=== PATIENT | male | born 1940 | race Caucasian/White ===

== ENCOUNTER 2017-09-13 10:19 | Day surgery (SDC) | payer MEDICARE ==
[~2017-09-13] VITALS: Ht 185.4 cm; Wt 113.6 kg
[2017-09-13] MEDS ORDERED: SODIUM CHLORIDE 0.9% 1,000 ML IV SCH (10:50)
[2017-09-13 10:55] VITALS: BP 137/81
[2017-09-13] MEDS ORDERED: CEFAZOLIN PMX 1GM/50ML 50 ML IVPB ONE (11:00)
[2017-09-13] MEDS ORDERED: OMEP-110 PO (11:15)
[2017-09-13] MEDS ORDERED: SIMV40TA3 PO (11:15)
[2017-09-13] MEDS ORDERED: ASPI-621 PO (11:15)
[2017-09-13] MEDS ORDERED: LEVO175T36 PO (11:15)
[2017-09-13] MEDS ORDERED: DIGO125T PO (11:15)
[2017-09-13] MEDS ORDERED: ALLO100T30 PO (11:15)
[2017-09-13] MEDS ORDERED: WARF5TAB PO (11:15)
[2017-09-13] MEDS ORDERED: METO50TA82 PO (11:15)
[2017-09-13 11:39] LABS: ANION GAP 9 mmol/L (5-15); CALCIUM 6.3 mg/dL (8.5-10.1); CHLORIDE 106 mmol/L (98-107); CREATININE 0.95 mg/dL (0.7-1.3)
[2017-09-13] MEDS ORDERED: PLEASE ENTER ALLERGIES MC SCH (12:00)
[2017-09-13] MEDS ORDERED: FENTANYL PF 100 MCG/2ML ONE (12:22)
[2017-09-13] MEDS ORDERED: MIDAZOLAM 1 MG/ML, 2ML ONE ×2 (12:22→12:59)
[2017-09-13] MEDS ORDERED: CEFAZOLIN PMX 1GM/50ML 50 ML ONE (12:22)
[2017-09-13] MEDS ORDERED: LIDOCAINE 2%, 10ML ONE ×2 (12:23→12:59)
[2017-09-13] MEDS ORDERED: CEFAZOLIN 1,000 MG ONE (12:23)
[2017-09-13] MEDS ORDERED: HYDROcodone/APAP 5/325 TABLET PO PRN (13:30)
[2017-09-13] MEDS ORDERED: SODIUM CHLORIDE FLUSH 10ML SYR IVF SCH (21:00)
== END 2017-09-13 16:00 | disposition home or self-care (01) ==
LOC: CACL 10:19
PROVIDERS: ATTEND Internal Medicine Cardiovascular Disease
DX: Z45.010 Encounter for checking and testing of cardiac pacemaker pulse generator [battery] (principal); I48.2 Chronic atrial fibrillation; I10 Essential (primary) hypertension; E78.5 Hyperlipidemia, unspecified; G47.33 Obstructive sleep apnea (adult) (pediatric); Z86.711 Personal history of pulmonary embolism; I25.10 Atherosclerotic heart disease of native coronary artery without angina pectoris; E78.00 Pure hypercholesterolemia, unspecified; Z79.82 Long term (current) use of aspirin; Z87.891 Personal history of nicotine dependence; Z79.899 Other long term (current) drug therapy
CPT/HCPCS: 33227; 36415; 80048; 99156; 99157; C1786; J0690; J2250; J3010; J3490

== ENCOUNTER → 2019-05-14 | Outpatient (CLI) | payer MEDICARE ==
[~2019-05-14] MED LIST: ALLO100T30 PO; ASPI81TA45 PO; DIGO125T PO; LEVO175T36 PO; METO50TA82 PO; OMEP-110 PO; SIMV40TA3 PO; WARF5TAB PO
[2019-05-14 12:46] LABS: ALBUMIN 4.2 g/dL (3.4-5.0); ANION GAP 7 mmol/L (5-15); CALCIUM 8.4 mg/dL (8.5-10.1); CHLORIDE 106 mmol/L (98-107)
[2019-05-14 12:49] LABS: ALANINE AMINOTRANSFERASE 38 U/L (12-78); ALKALINE PHOSPHATASE 46 U/L (45-117); BILIRUBIN,TOTAL 1.1 mg/dL (0.2-1.0); CHOL/HDL RATIO 2.5; CHOLESTEROL, TOTAL 116 mg/dL (140-239); CREATININE 1.17 mg/dL (0.7-1.3); HDL CHOL % 41 % (26-37); HDL CHOLESTEROL (DIRECT) 47 mg/dL (40-60); LDL CHOLESTEROL,CALCULATED 41 mg/dL (54-169); LDL/HDL RATIO 0.9 (0.5-3.0); TOTAL PROTEIN 7.5 g/dL (6.4-8.2); TRIGLYCERIDES 139 mg/dL (50-200); VLDL CHOLESTEROL 28 mg/dL (0-25)
== END | disposition home or self-care (01) ==
LOC: CFH 10:48
PROVIDERS: ATTEND Internal Medicine Cardiovascular Disease
DX: E78.00 Pure hypercholesterolemia, unspecified (principal); I25.10 Atherosclerotic heart disease of native coronary artery without angina pectoris; I48.20 Chronic atrial fibrillation, unspecified; Z79.899 Other long term (current) drug therapy; Z95.0 Presence of cardiac pacemaker
CPT/HCPCS: 36415; 80053; 80061

== ENCOUNTER → 2019-11-29 | Outpatient (CLI) | payer MEDICARE ==
[~2019-11-29] MED LIST changes: -DIGO125T PO; +DIGO125T85 PO; +REGADENOSON 0.4 MG/5 ML SYRINGE ONE; +SIMV40TA20 PO; -SIMV40TA3 PO; -WARF5TAB PO; +WARF5TAB2 PO
== END | disposition home or self-care (01) ==
LOC: CFH 07:41
PROVIDERS: ATTEND Internal Medicine Cardiovascular Disease
DX: I25.89 Other forms of chronic ischemic heart disease (principal); I25.10 Atherosclerotic heart disease of native coronary artery without angina pectoris; E78.00 Pure hypercholesterolemia, unspecified
CPT/HCPCS: 78452; 93017; A9502; J2785